=== PATIENT | male | born 1985 | race Caucasian/White ===

== ENCOUNTER 2019-12-23 10:31 | Emergency (ER) | payer OTHER ==
[~2019-12-23] VITALS: Ht 172.7 cm; Wt 93.9 kg
[2019-12-23 11:23] LABS: BASOPHIL % 0.6 % (0-2); PLATELET COUNT 219 x10^3mcL (130-400); RED CELL DISTRIBUTION WIDTH 13.1 % (11.5-14.5)
[2019-12-23 11:35] LABS: microscopic required? NO
[2019-12-23 11:43] LABS: CALCIUM 8.7 mg/dL (8.5-10.1); CARBON DIOXIDE 27.2 mmol/L (21-32); CHLORIDE SERUM 104 mmol/L (98-107); CREATININE SERUM 0.9 mg/dL (0.7-1.3); GFR1 > 60 mL/min; GLUCOSE SERUM 101 mg/dL (74-106); SODIUM SERUM 138 mmol/L (136-145)
[2019-12-23 11:47] LABS: UA SPECIFIC GRAVITY 1.015 (1.005-1.035); urine erythrocyte NEGATIVE (NEGATIVE)
[2019-12-23 11:47] LABS: ALBUMIN 3.7 g/dL (3.4-5.0); ALKALINE PHOSPHATASE 95 U/L (46-116); ALT/SGPT 45 U/L (16-63); AST/SGOT 22 U/L (15-37); BILIRUBIN TOTAL 0.4 mg/dL (0.20-1.00); CHOLESTEROL 180 mg/dL (<200); HDL CHOLESTEROL 44 mg/dL (40-60); LIPASE 101 IU/L (73-393); TOTAL PROTEIN, SERUM 7.2 g/dL (6.4-8.2)
[2019-12-23 12:04] LABS: AMPHETAMINE QUAL UR NONE DETECTED (See below)
[2019-12-23 13:11] VITALS: BP 115/74
== END 2019-12-23 13:11 | disposition home or self-care (01) ==
LOC: ED 10:31
PROVIDERS: Emergency Medicine
DX: R07.89 Other chest pain (principal); F17.210 Nicotine dependence, cigarettes, uncomplicated; Z71.6 Tobacco abuse counseling; Z72.89 Other problems related to lifestyle
CPT/HCPCS: 36415; 83880; 99406; Q0092

== ENCOUNTER 2020-02-01 17:10 | Emergency (ER) | payer BC ==
[~2020-02-01] VITALS: Ht 172.7 cm; Wt 95.7 kg
[2020-02-01 17:27] VITALS: Ht 172.7 cm; Wt 95.7 kg
[2020-02-01 18:07] LABS: BASOPHIL % 1.4 % (0-2); PLATELET COUNT 254 x10^3mcL (130-400); RED CELL DISTRIBUTION WIDTH 12.6 % (11.5-14.5)
[2020-02-01 18:18] LABS: CALCIUM 9.5 mg/dL (8.5-10.1); CARBON DIOXIDE 26.7 mmol/L (21-32); CHLORIDE SERUM 104 mmol/L (98-107); GFR1 > 60 mL/min; GLUCOSE SERUM 92 mg/dL (74-106); POTASSIUM SERUM 4.1 mmol/L (3.5-5.1); SODIUM SERUM 141 mmol/L (136-145)
[2020-02-01 18:24] LABS: ALKALINE PHOSPHATASE 105 U/L (46-116); ALT/SGPT 54 U/L (16-63); AST/SGOT 25 U/L (15-37); BILIRUBIN TOTAL 0.4 mg/dL (0.20-1.00); TOTAL PROTEIN, SERUM 7.5 g/dL (6.4-8.2)
[2020-02-01 18:33] LABS: ALBUMIN 4.1 g/dL (3.4-5.0)
[2020-02-01 20:27] VITALS: BP 120/72
== END 2020-02-01 20:29 | disposition home or self-care (01) ==
LOC: ED 17:10
DX: M94.0 Chondrocostal junction syndrome [Tietze] (principal)
CPT/HCPCS: 83880; Q0092

== ENCOUNTER 2020-03-24 01:13 | Inpatient (IN) | payer BC ==
[~2020-03-24] VITALS: Ht 172.7 cm; Wt 98.0 kg
[2020-03-24 01:18] VITALS: Ht 172.7 cm; Wt 98.0 kg
--- NOTE | 2020-03-24 02:36 | NUR ---
PT CAME TO ED FOR C/O ABD PAIN X 6 HOURS. PT IS AAOX4, NAD NOTED. PT STATES HE WAS AT WORK AND THEN ALL OF A SUDDEN FELT SEVERE 10/10 SHARP/BURNING PAIN IN GENERALIZED AREA. ABD SOFT/ROUND AND TENDER IN ALL 4 QUDRANTS. PT STATES HE HAS NEVER HAD THIS BEFORE. PT STATES HE TOOK 2 TABS OF 500 MG AT 1800 YESTERDAY BUT PAIN DID NOT GO AWAY. PT PLACED ON FULL CM, VSS. WAITING MSE. CALL LIGHT IZZYIN REACH. WILL CONTINUE TO MONITOR.
--- NOTE | 2020-03-24 03:15 | NUR ---
PT REFUSED IV AND MORPHINE BECAUSE HE WANTS TO BE ABLE TO DRIVE HOME. MD FORBES MADE AWARE, MEDICATED PER ORDERS, SEE EMAR FOR DETAILS. CALL LIGHT WITHIN REACH. WILL CONTINEU TO MONITOR PT.
[2020-03-24 03:16] LABS: BASOPHIL % 1.4 % (0-2); PLATELET COUNT 251 x10^3mcL (130-400); RED CELL DISTRIBUTION WIDTH 12.9 % (11.5-14.5)
[2020-03-24 03:23] LABS: CALCIUM 8.8 mg/dL (8.5-10.1); CARBON DIOXIDE 26.2 mmol/L (21-32); CHLORIDE SERUM 100 mmol/L (98-107); GFR1 > 60 mL/min; GLUCOSE SERUM 100 mg/dL (74-106); POTASSIUM SERUM 3.6 mmol/L (3.5-5.1); SODIUM SERUM 135 mmol/L (136-145)
--- NOTE | 2020-03-24 03:25 | NUR ---
CT SCAN AT BEDSIDE TO TAKE PT TO CT VIA WHEELCHAIR.
[2020-03-24 03:28] LABS: ALBUMIN 3.7 g/dL (3.4-5.0); ALKALINE PHOSPHATASE 94 U/L (46-116); ALT/SGPT 54 U/L (16-63); AST/SGOT 15 U/L (15-37); BILIRUBIN TOTAL 0.28 mg/dL (0.20-1.00); TOTAL PROTEIN, SERUM 7.1 g/dL (6.4-8.2)
--- NOTE | 2020-03-24 03:43 | NUR ---
PT STATES HE CANT URINATE AT THIS TIME, URINAL GIVEN TO PT. MD ORELLANA MADE AWARE.
--- NOTE | 2020-03-24 04:04 | NUR ---
REQUESTED URINE FROM PT AGAIN, PT REQUESTING WATER. PER MD ORELLANA, OK TO GIVE PT WATER AT THIS TIME TO OBTAIN URINE. URINAL AT BEDSIDE.
[2020-03-24 04:09] LABS: LIPASE 3976 IU/L (73-393)
[2020-03-24] MEDS ORDERED: MEGARED OMEGA-1 EAC2 PO (04:29)
[2020-03-24] MEDS ORDERED: VITAMIN B-100 N1 TAB (04:31)
[2020-03-24] MEDS ORDERED: VIT B12 (04:31)
[2020-03-24 04:46] LABS: AMPHETAMINE QUAL UR NONE DETECTED (See below)
--- NOTE | 2020-03-24 05:03 | NUR ---
GAVE REPORT TO LUISITO GOISN MST RM [id number] EXT [phone] FOR FURTHER CARE OF PT. WILL BE TRANSFERRIGN PT UPSTAIRS.
[2020-03-24 05:31] VITALS: BP 127/79
--- NOTE | 2020-03-24 05:41 | NUR ---
RECEIVED PATIENT FROM ED VIA W/C ACCOMPANY BY NURSE. PATIENT IS AAOX4 DENIES HARRIS/DIZZINESS. BREATHING EVEN AND UNLABORED ON RA WITH NO SOB NOTED. NO RESP DISTRESS. DENIES COUGH. MED SURG PATIENT DENIES CHEST PAIN/PRESSURE. NO EDEMA NOTED, PALPABLE PULSES. NO ACUTE DISTRESS. PATIENT AMBULATORY. PATIENT CC ABD PAIN. IV RAC PATENT, FLUSHED WELL. CALL BUTTON WTIHIN REACH. SAFETY PRECAUTIONS IN PLACE. WILL MONITOR.
--- NOTE | 2020-03-24 06:12 | NUR ---
PATIENT REPORTED HAVING ABD PAIN, MEDICATED PER EMAR. CALL BUTTON WITHIN REACH. SAFETY PRECAUTIONS IN PLACE. WILL MONITOR.
--- NOTE | 2020-03-24 07:26 | NUR ---
PATIENT IN NO ACUTE DISTRESS. ENDORSED CARE TO DAY SHIFT RN, ALL QUESTIONS ADDRESSED.
--- NOTE | 2020-03-24 07:30 | NUR ---
PATIENT IS A&OX4, FOLLOWS COMMANDS AND COOEPRATES WELL. MEDSURG PATIENT, DENIES CHEST PAIN. PERIPHERAL PULSES PALPABLE W/ NO SIGNS OF EDEMA. LUNG SOUNDS CTA BILATERALLY, ON RA, O2 SAT 97%, DENIES SOB. NORMOACTIVE BSX4, ALTHOUGH ABD IS TENDER AND FIRM, BUT STATES MINIMAL AND DECREASING ABD PAIN SINCE ADMISSION. VOIDS USING RESTROOM. AMBULATORY WITH MILD GENERALIZED WEAKNESS DUE TO ABD PAIN. SKIN IS INTACT. IV SITE IS CDI AND INFUSING. WILL CONTINUE TO MONITOR PATIENT.
[2020-03-24 07:46] LABS: CHOLESTEROL 223 mg/dL (<200); HDL CHOLESTEROL 37 mg/dL (40-60); TRIGLYCERIDES 480 mg/dL (<150)
--- NOTE | 2020-03-24 08:07 | NUR ---
MD VISITED AND UPDATED PATIENT PERTAINING TO TREATMENT PLAN. MD ANSWERED ALL QUESTIONS AND CONCERNS AT THIS TIME. WILL CONTINUE TO MONITOR PATIENT.
[2020-03-24 08:46] VITALS: BP 118/71
--- NOTE | 2020-03-24 11:37 | NUR ---
PATIENT TOLERATING JELLO AND WATER AT THIS TIME. WILL ASSESS PATIENT WHEN PATIENT HAS LUNCH TO SEE IF PATIENT WILL TOLERATE A FULL LIQUID DIET.
[2020-03-24 12:21] VITALS: BP 103/66
[2020-03-24] MEDS ORDERED: TRAZODONE150 M1 PO ×2 (14:56→16:40)
[2020-03-24] MEDS ORDERED: IBU800 M2 PO (14:57)
[2020-03-24 15:04] VITALS: BP 103/66
--- NOTE | 2020-03-24 16:09 | NUR ---
PATIENT HAS RECEIVED DISCHARGE INSTRUCTIONS. ALL QUESTIONS AND CONCERNS HAVE BEEN ADDRESSED. PATIENT DENIES ANY DISCOMFORT OR IS ANXIOUS ABOUT BEING DISCHARGED. IV SITE HAS BEEN DC, WITH CATHETER INTACT. PATIENT AWAITING FAMILY TO PICK HIM UP. WILL CONTINUE TO MONITOR UNTIL THEN.
[2020-03-24] MEDS ORDERED: MOT800 PO (16:40)
== END 2020-03-24 16:52 | disposition home or self-care (01) | DRG 438 ==
LOC: ED 01:13 → MU 04:23
PROVIDERS: Emergency Medicine; Family Medicine; ADMIT Student in an Organized Health Care Education/Training Program; ATTEND Student in an Organized Health Care Education/Training Program
DX: K85.90 Acute pancreatitis without necrosis or infection, unspecified (principal); N17.0 Acute kidney failure with tubular necrosis; F17.210 Nicotine dependence, cigarettes, uncomplicated
CPT/HCPCS: G0378; G0480; J1885; J2270; J2405; J7030; Q0092; Q0162